=== PATIENT | female | born 2000 | race Two or more races ===

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

== ENCOUNTER 2021-02-11 18:05 | Emergency (ER) | payer MEDICAID ==
[~2021-02-11] VITALS: Ht 157.5 cm; Wt 64.6 kg
[~2021-02-11 18:05] MED LIST changes: +IBUP-1060 PO
[2021-02-11] MEDS ORDERED: IV NORMAL SALINE 1000ML BAG 1,000 ML IV SCH (18:45)
[2021-02-11] MEDS ORDERED: fentaNYL PF VIAL 100 MCG/2 ML VIAL IV ONE (18:45)
--- NOTE | 2021-02-11 18:50 | PHYS DOC ---
Past Medical History Past Medical History: No Pertinent History (DHARMESH PASCUAL APRN) Past Surgical History: No Surgical History (DHARMESH PASCUAL APRN) Smoking Status: Never Smoker Alcohol Use: None Drug Use: None (DHARMESH PASCUAL APRN) General Adult EDM: Chief Complaint: VAGINAL BLEEDING HPI: HPI: Patient is a 20 year old female who presents with approximately 8 weeks and began having lower abdominal cramping contraction-like pain that wraps around to her back with vaginal bleeding and large clots. She states that the cramping started yesterday and bleeding. Patient is . She has seen Dr. Wills in the past. She is Citizen [place]-speaking court interpreter phone is used. She rates her abdominal pain a 10 out of 10. She denies fever, chest pain, shortness of air, dizziness, headache, nausea, vomiting, diarrhea, sexually-transmitted disease concerns. (DHARMESH PASCUAL APRN) Review of Systems: Review of Systems: Constitutional: Denies fever or chills. [] Eyes: Denies change in visual acuity. [] HENT: Denies nasal congestion or sore throat. [] Respiratory: Denies cough or shortness of breath. [] Cardiovascular: Denies chest pain or edema. [] GI: + abdominal pain, denies nausea, vomiting, bloody stools or diarrhea. [] : Denies dysuria. + Vaginal bleeding [] Musculoskeletal: + back pain or denies joint pain. [] Integument: Denies rash. [] Neurologic: Denies headache, focal weakness or sensory changes. [] Endocrine: Denies polyuria or polydipsia. [] Lymphatic: Denies swollen glands. [] Psychiatric: Denies depression or anxiety. [] (DHARMESH PASCUAL LAND INSPECTOR) Heart Score: C/O Chest Pain: No Risk Factors: Risk Factors: DM, Current or recent (<one month) smoker, HTN, HLP, family history of CAD, obesity. Risk Scores: Score 0 - 3: 2.5% MACE over next 6 weeks - Discharge Home Score 4 - 6: 20.3% MACE over next 6 weeks - Admit for Clinical Observation Score 7 - 10: 72.7% MACE over next 6 weeks - Early Invasive Strategies (DHARMESH PASCUAL APRN) Current Medications: Current Medications Medications (Trade) Dose Ordered Sig/Van Start Time Stop Time Status Last Admin Dose Admin Fentanyl Citrate (Fentanyl 2ml Vial) 25 mcg 1X ONCE 02/11/21 18:45 02/11/21 18:46 Sodium Chloride 1,000 ml @ 1,000 mls/hr Q1H 02/11/21 18:45 02/11/21 19:44 (DHARMESH PASCUAL APRN) Allergies: Allergies: Allergies Coded Allergies Type Severity Reaction Last Updated Verified No Known Drug Allergies 04/06/18 No (DHARMESH PASCUAL APRN) Physical Exam: PE: Constitutional: Well developed, well nourished, no acute distress, non-toxic appearance. [] HENT: Normocephalic, atraumatic, bilateral external ears normal, oropharynx moist, no oral exudates, nose normal. [] Eyes: PERRLA, EOMI, conjunctiva normal, no discharge. [] Neck: Normal range of motion, no tenderness, supple, no stridor. [] Cardiovascular:Heart rate regular rhythm, no murmur [] Lungs & Thorax: Bilateral breath sounds clear to auscultation [] Abdomen: Bowel sounds normal, soft, no tenderness, no masses, no pulsatile masses. Vaginal bleeding with large clots [] Skin: Warm, dry, no erythema, no rash. [] Back: No tenderness, no CVA tenderness. [] Extremities: No tenderness, no cyanosis, no clubbing, ROM intact, no edema. [] Neurologic: Alert and oriented X 3, normal motor function, normal sensory function, no focal deficits noted. [] Psychologic: Affect normal, judgement normal, mood normal. [] (DHARMESH PASCUAL APRN) EKG: EKG: [] (DHARMESH PASCUAL APRN) Radiology/Procedures: Radiology/Procedures: [] Impression: [facility] [address] [place] [address] IMAGING REPORT Signed PATIENT: TRACI WATERSOUNT: [id number] : 2000 LOCATION: ER AGE: 20 SEX: F EXAM STATUS: REG ER ORD. PHYSICIAN: DHARMESH PASCUAL APRN REASON: vaginal bleeding in pregnamcy PROCEDURE: OB TRANSVAG Study: US OB TRANSVAGINAL DATE: 02/11/2021 7:04 PM INDICATION: Vaginal bleeding during . COMPARISON: None during this gestation. TECHNIQUE: Transvaginal ultrasonography of the pelvis was performed. Color Doppler and duplex were utilized as appropriate. FINDINGS: The uterus measures 5.7 x 10.1 x 5.3 cm. Thickened and heterogeneous endometrium measuring up to 1.9 cm. No Doppler flow to the endometrium or endometrial canal contents. An irregularly marginated cystic structure is seen along the cervical canal without a visualized yolk sac or pole. The right ovary measures 2.2 x 1.7 x 1.4 cm and the left ovary 2.7 x 1.5 x 1.3 cm. No complex cyst or mass. Doppler flow is maintained. Small amount of simple appearing free fluid within the deep pelvis. IMPRESSION: 1. No intrauterine gestational sac is identified. The endometrium is thickened and heterogeneous and along the cervical canal is an irregularly marginated cystic structure which could represent a gestational sac. No pole or yolk sac is identified. No heart tones. The findings are highly suspicious for an in-progress miscarriage. Recommend correlation with beta hCG levels, short term follow-up and obstetrical consultation. 2. Unremarkable ovaries. Only a small amount of simple appearing free fluid within the deep pelvis. Electronically signed by: SHUKRI SOTOMAYOR MD (02/11/2021 7:48 PM) [facility] DICTATED and SIGNED BY: SHUKRI SOTOMAYOR MD DATE: 02/11/21 [id number] (DHARMESH PASCUAL APRN) Course & Med Decision Making: Course & Med Decision Making Pertinent Labs and Imaging studies reviewed. (See chart for details) See HPI. Alert and oriented x4. Ambulatory steady gait. Speaks in full clear sentences. Abdomen soft and nontender. Vital signs within normal limits. Skin pink warm and dry. Patient is O+. Pelvic Exam: Die Inspector present Abdomen: Nontender External Genitalia: Normal Skin Speculum: Normal vaginal mucosa, normal cervical discharge, moderate vaginal bleeding with golf ball size clot Bimanual: No adnexal masses or tenderness, No CMT [] (DHARMESH PASCUAL APRN) Course & Med Decision Making Concern for incomplete miscarriage in early first trimester with indeterminate findings on transvaginal ultrasound, potential gestational sac that is in progre ss of passing. I spoke to Dr. Wills regarding her hCG findings of 3077, no prior level. Dr. Wills recommends patient follow-up in clinic tomorrow. Patient understands any brisk or heavy vaginal bleeding or severe pain to come to the emergency department immediately, otherwise follow-up within 24 hours with PHOTOGRAPHIC SUPERVISOR-this formation was explained in [place] to patient. (ISATU RAMON DO) Dragon Disclaimer: Dragon Disclaimer: This electronic medical record was generated, in whole or in part, using a voice recognition dictation system. (DHARMESH PASCUAL APRN) Departure Departure Impression: Primary Impression: Vaginal bleeding in Additional Impression: Threatened miscarriage in early Disposition: 01 HOME / SELF CARE / HOMELESS Condition: STABLE Referrals: NO PCP (PCP) ARNAV WILLS MD Patient Instructions: Threatened Miscarriage, Vaginal Bleeding During , [id number] Additional Instructions: Follow up with your OB Dr. Wills soon as possible. If you begin going through more than 1 pad an hour need to return to the emergency room. If you begin feeling dizzy or lightheaded or having chest pain or shortness of breath any return to emergency room. Drink plenty of fluids. Take Tylenol for pain. DHARMESH PASCUAL APRN Feb 11, 2021 18:50 ISATU RAMON DO Feb 11, 2021 22:07
[2021-02-11 19:06] LABS: BASO # 0.1 x10^3/uL (0.0-0.2); BASO % 1 % (0-3); EOS # 0.4 x10^3/uL (0.0-0.7); EOS % 5 % (0-3); HEMATOCRIT 37.6 % (36.0-47.0); HEMOGLOBIN 12.6 g/dL (12.0-15.5); LYMPH # 1.9 x10^3/uL (1.0-4.8); LYMPH % 23 % (24-48); MEAN CORPUSCULAR HEMOGLOBIN 28 pg (25-35); MEAN CORPUSCULAR HGB CONC 34 g/dL (31-37); MEAN CORPUSCULAR VOLUME 83 fL (79-100); MONO # 0.4 x10^3/uL (0.0-1.1); MONO % 5 % (0-9); NEUT # 5.7 x10^3/uL (1.8-7.7); NEUT % 67 % (31-73); PLATELET COUNT 242 x10^3/uL (140-400); RED BLOOD COUNT 4.53 x10^6/uL (3.50-5.40); WHITE BLOOD COUNT 8.5 x10^3/uL (4.0-11.0)
[2021-02-11 19:12] LABS: CALCIUM 9.1 mg/dL (8.5-10.1); CREATININE 0.7 mg/dL (0.6-1.0); GFR 107.8; POTASSIUM 3.6 mmol/L (3.5-5.1)
[2021-02-11 19:18] LABS: ALBUMIN 3.8 g/dL (3.4-5.0); ALBUMIN/GLOBULIN RATIO 1.2 (1.0-1.7); TOTAL BILIRUBIN 0.4 mg/dL (0.2-1.0); TOTAL PROTEIN 6.9 g/dL (6.4-8.2)
[2021-02-11 19:46] LABS: PROTHROMBIN TIME PATIENT 13.6 SEC (11.7-14.0)
--- NOTE | 2021-02-11 19:51 | RAD ---
Study: US OB TRANSVAGINAL DATE: 02/11/2021 7:04 PM INDICATION: Vaginal bleeding during . COMPARISON: None during this gestation. TECHNIQUE: Transvaginal ultrasonography of the pelvis was performed. Color Doppler and duplex were ut ilized as appropriate. FINDINGS: The uterus measures 5.7 x 10.1 x 5.3 cm. Thickened and heterogeneous endometrium measuring up to 1.9 cm. No Doppler flow to the endometrium or endometrial canal contents. An irregularly marginated cysti c structure is seen along the cervical canal without a visualized yolk sac or pole. The right ovary measures 2.2 x 1.7 x 1.4 cm and the left ovary 2.7 x 1.5 x 1.3 cm. No complex cyst or mass. Doppler flow is maintained. Small amount of simple appearing free fluid within the deep pelvis. IMPRESSION: 1. No intrauterine gestational sac is identified. The endometrium is thickened and heterogeneous and along the cervical canal is an irregularly marginated cystic structure which could represent a gesta tional sac. No pole or yolk sac is identified. No heart tones. The findings are highly ybarra spicious for an in-progress miscarriage. Recommend correlation with beta hCG levels, short term follo w-up and obstetrical consultation. 2. Unremarkable ovaries. Only a small amount of simple appearing free fluid within the deep pelvis. Electronically signed by: SHUKRI SOTOMAYOR MD (02/11/2021 7:48 PM) [facility]
[2021-02-11 20:00] VITALS: BP 102/59
[2021-02-12] MEDS ORDERED: IBUP-1007 PO (17:54)
== END 2021-02-11 20:10 | disposition home or self-care (01) ==
LOC: ER 18:05
DX: R10.819 Abdominal tenderness, unspecified site (principal); O20.0 Threatened abortion; Z3A.08 8 weeks gestation of pregnancy
CPT/HCPCS: 36415; 76817; 80053; 84702; 85025; 85610; 96361; 96374; 99284; J3010; J7030

== ENCOUNTER 2021-02-12 16:22 | Emergency (ER) | payer MEDICAID ==
[~2021-02-12] VITALS: Ht 157.5 cm; Wt 63.6 kg
[2021-02-12] MEDS ORDERED: IBUP-1007 PO (17:54)
--- NOTE | 2021-02-12 17:56 | PHYS DOC ---
Past Medical History Past Medical History: No Pertinent History Additional Past Medical Histor: MISCARRIAGE Past Surgical History: No Surgical History Smoking Status: Never Smoker Alcohol Use: None Drug Use: None General Adult EDM: Chief Complaint: VAGINAL BLEEDING HPI: HPI: Patient is a 20 year old female patient 3 para 2 presenting to the ED today complaining of vaginal bleeding in that has been going on since yesterday. Patient states she was seen in the ED and was told she is having a miscarriage. She states she tried calling the [facility] Dr. Dsouza for follow-up and he wanted $600. Patient states she is still bleeding and has abdominal cramping as well as back pain. Rates the pain is mild and intermittent. States the pain is worse when she is bleeding. Denies any nausea or vomiting. 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 [] Eyes: Denies change in visual acuity. [] HENT: Denies nasal congestion or sore throat. [] Respiratory: Denies cough or shortness of breath. [] Cardiovascular: Denies chest pain or edema. [] GI: Reports vaginal bleeding in . Denies abdominal pain, nausea, vomiting, bloody stools or diarrhea. [] : Denies dysuria. [] Musculoskeletal: Denies back pain or joint pain. [] Integument: Denies rash. [] Neurologic: Denies headache, focal weakness or sensory changes. [] Psychiatric: Denies depression or anxiety. [] Heart Score: C/O Chest Pain: N/A Risk Factors: Risk Factors: DM, Current or recent (<one month) smoker, HTN, HLP, family history of CAD, obesity. Risk Scores: Score 0 - 3: 2.5% MACE over next 6 weeks - Discharge Home Score 4 - 6: 20.3% MACE over next 6 weeks - Admit for Clinical Observation Score 7 - 10: 72.7% MACE over next 6 weeks - Early Invasive Strategies Allergies: Allergies: Allergies Coded Allergies Type Severity Reaction Last Updated Verified No Known Drug Allergies 04/06/18 No Physical Exam: PE: Constitutional: Well developed, well nourished, no acute distress, non-toxic appearance. [] HENT: Normocephalic, atraumatic, bilateral external ears normal, oropharynx moist, no oral exudates, nose normal. [] Eyes: PERRLA, EOMI, conjunctiva normal, no discharge. [] Neck: Normal range of motion, no tenderness, supple, no stridor. [] Cardiovascular:Heart rate regular rhythm, no murmur [] Lungs & Thorax: Bilateral breath sounds clear to auscultation [] Abdomen: Bowel sounds normal, soft, no tenderness, no masses, no pulsatile masses. [] Pelvic exam differed Skin: Warm, dry, no erythema, no rash. [] Back: No tenderness, no CVA tenderness. [] Extremities: No tenderness, no cyanosis, no clubbing, ROM intact, no edema. [] Neurologic: Alert and oriented X 3, normal motor function, normal sensory function, no focal deficits noted. [] Psychologic: Affect normal, judgement normal, mood normal. [] Current Patient Data: Vital Signs: Vital Signs Date Time Temp Pulse Resp B/P (MAP) Pulse Ox O2 Delivery O2 Flow Rate FiO2 02/12/21 16:35 99.3 69 16 119/63 (73) 100 Room Air 99.3 EKG: EKG: [] Radiology/Procedures: Radiology/Procedures: [] Course & Med Decision Making: Course & Med Decision Making Pertinent Labs and Imaging studies reviewed. (See chart for details) This is a 20-year-old female patient presented to the ED today complaining of vaginal bleeding in since yesterday. Patient was seen in the ED yesterday had an ultrasound done which showed she has no IUP and was passing products of conception. Patient was not able to see the [facility] today because he wanted $600. Spoke to patient and at length, language barrier was an issue. Education provided on miscarriage what to expect in where to follow-up. Return precautions provided. Blood type O+ Dragon Disclaimer: Dragon Disclaimer: This electronic medical record was generated, in whole or in part, using a voice recognition dictation system. Departure Departure Impression: Primary Impression: Miscarriage Disposition: HOME / SELF CARE / HOMELESS Condition: STABLE Referrals: NO PCP (PCP) ARNAV DSOUZA MD follow up in 3 days Patient Instructions: Miscarriage, [id number] Additional Instructions: You are going through a miscarriage. The ultrasound we did yesterday that showed you have no baby in your uterus. This is a natural process that causes you to bleed. You will pass big to small blood clots. You will have back pain and abdominal cramping. Push fluids. Take vitamins every day. Follow-up with the provided [facility] in the course of this week. Rest, do not have any intercourse until you see the [facility]. Scripts Ibuprofen (IBUPROFEN) 600 Mg Tablet 600 MG PO PRN Q6HRS PRN for INFLAMMATION, #30 TAB Prov: JARON RAYA APRN 02/12/21 JARON RAYA APRN Feb 12, 2021 17:56
[2021-02-12 17:58] VITALS: BP 96/55
== END 2021-02-12 18:00 | disposition home or self-care (01) ==
LOC: ER 16:22
DX: O03.9 Complete or unspecified spontaneous abortion without complication (principal)
CPT/HCPCS: 99283